=== PATIENT | male | born 1980 | race African-American/Black ===

== ENCOUNTER → 2016-12-29 | Outpatient (CLI) | payer MEDICARE, OTHER ==
[~2016-12-29] MED LIST: ABIL15TA2 PO; ADVA250A INH; AMOX875T PO; BACT2OIN TOP; BENZ2 PO; BLOO1MIS27; FISH1000 PO; HYDR-2768 PO; HYDR25TA5 PO; IBUP800T23 PO; LAMI100T PO; LAMO100 PO; MUCI600T PO; VENTAER INH
--- NOTE | 2016-12-29 15:06 | EKG ---
Date Performed: 12/29/2016 Time Performed: 09:41:50 PTAGE: 36 years EKG: Sinus rhythm PROBABLE DIFFUSE ST ELEVATION PROBABLE EARLY REPOLARIZATION, LARGELY UNCHANGED FROM PRIOR TRACING. PREVIOUS TRACING : 02/07/2004 08.35 DOCTOR: Tyler Kumar Interpretating Date/Time 12/29/2016 15:05:14
== END ==
LOC: HCAV 09:20
DX: F31.73 Bipolar disorder, in partial remission, most recent episode manic (principal)
CPT/HCPCS: 93005